=== PATIENT | male | born 1995 | race Two or more races ===

== ENCOUNTER 2022-03-21 17:24 | Emergency (ER) | payer MEDICARE ==
[~2022-03-21] VITALS: Ht 172.7 cm; Wt 65.8 kg
[2022-03-21 17:49] LABS: *BILIRUBIN,URIN NEGATIVE (NEGATIVE); *BLOOD, URINE NEGATIVE (NEGATIVE); *CLARITY,URINE CLEAR (CLEAR); *COLOR,URINE YELLOW (YELLOW); *KETONES,URINE NEGATIVE (NEGATIVE); *UROBILINOGEN,URINE 0.2 E.U./dl (NORMAL); LEUKOCYTE ESTERASE ,URINE NEGATIVE (NEGATIVE); NITRITE, URINE NEGATIVE (NEGATIVE); UGLUCOSE NEGATIVE (NEGATIVE)
[2022-03-21 18:08] LABS: HEMATOCRIT 46.9 % (36.7-47.1); MEAN CORPUSCULAR HEMOGLOBIN 26.5 uug (23.8-33.4); MEAN CORPUSCULAR VOLUME 79.7 fL (73.0-96.2); PLATELET COUNT (AUTO) 331 K/uL (152-348)
[2022-03-21 18:13] LABS: *AMPHETAMINE, URINE NEGATIVE (NEGATIVE); *CANNABINOID, URINE NEGATIVE (NEGATIVE); *COCCAINE, URINE NEGATIVE (NEGATIVE); *OPIATE, URINE NEGATIVE (NEGATIVE); *PHENCYCLIDINE SCREEN,URINE NEGATIVE (NEGATIVE)
[2022-03-21 18:25] LABS: ALANINE AMINOTRANSFERASE 26 U/L (16-63); ALKALINE PHOSPHATASE 85 U/L (50-136); ASPARTATE AMINOTRANSFERASE 14 U/L (15-37); BILIRUBIN,DIRECT 0.1 mg/dL (0.0-0.2); BILIRUBIN,TOTAL 0.2 mg/dL (0.2-1.0); CARBON DIOXIDE 33 mmol/L (21-32); CHLORIDE 102 mmol/L (98-107); GLUCOSE 118 mg/dL (74-106); POTASSIUM 4.7 mmol/L (3.5-5.1); TOTAL PROTEIN, SERUM 7.6 g/dL (6.4-8.2); UREA NITROGEN, BLOOD 15 mg/dL (7-18)
[2022-03-21 18:30] LABS: ACETAMINOPHEN < 2.0 ug/mL (10-30)
--- NOTE | 2022-03-21 18:40 | NUR ---
Patient ate dinner with good appetite, pending medical clearance for possible voluntary psych admission.
[2022-03-21 18:55] LABS: ETHANOL < 3 MG/DL (0-0)
--- NOTE | 2022-03-21 18:55 | NUR ---
Nursing SBAR given to REYNOLD Valenzuela.
--- NOTE | 2022-03-21 18:55 | NUR ---
Received report from REYNOLD Babcock.
--- NOTE | 2022-03-21 19:13 | NUR ---
Contacted Constance Magaña LCSW for crisis eval, she will be here shortly.
--- NOTE | 2022-03-21 20:20 | NUR ---
Constance Magaña LCSW has arrived to ER unit.
--- NOTE | 2022-03-21 20:25 | NUR ---
Constance Magaña LCSW is at pt bedside.
[2022-03-21] MEDS ORDERED: QUETIAPINE FUMARATE 100 MG TABLET ONE (20:53)
[2022-03-21] MEDS ORDERED: QUETIAPINE FUMARATE 25 MG TABLET PO ONE (21:00)
--- NOTE | 2022-03-21 21:00 | NUR ---
Constance Magaña LCSW has faxed summary report and hold to 5 different locations, just waiting for approval.
--- NOTE | 2022-03-21 21:25 | NUR ---
Pt accepted [facility]. Spoke to Brinda from intake (her # [phone]). Reporting # . Address: [address] [place] [id number] Under the care of Dr. Cazares. Note: Tell ambulance to enter through Entrance # 4
--- NOTE | 2022-03-21 21:30 | NUR ---
Called [facility], not ready for report at this time. Will call back in about 30 min.
--- NOTE | 2022-03-21 21:34 | NUR ---
Informed Constance Magaña LCSW of patients acceptance to [facility].
--- NOTE | 2022-03-21 21:53 | NUR ---
Report given to REYNOLD Keith from [place].
--- NOTE | 2022-03-21 22:00 | NUR ---
Called [facility] 90 min.
--- NOTE | 2022-03-22 00:20 | NUR ---
[facility] has arrived.
--- NOTE | 2022-03-22 00:31 | NUR ---
Patient discharged to [facility] in stable condition with [facility]. A/O x 4. NAD noted. Ambulatory with a steady gait. Written and verbal after care instructions given. Patient and ambulance personnel verbalized understanding of instructions. Stressed follow up or return to ER for worsening s/s.
== END 2022-03-22 00:33 ==
LOC: ER 17:24
DX: R45.851 Suicidal ideations (principal); F23 Brief psychotic disorder; F19.10 Other psychoactive substance abuse, uncomplicated; F15.10 Other stimulant abuse, uncomplicated; F12.10 Cannabis abuse, uncomplicated; F25.9 Schizoaffective disorder, unspecified; Z20.822 Contact with and (suspected) exposure to COVID-19
CPT/HCPCS: 36415; 85025; A4663; G0480